=== PATIENT | male | born 1935 | race Caucasian/White ===

== ENCOUNTER 2018-12-31 22:56 | Emergency (ER) | payer BC ==
[~2018-12-31] VITALS: Ht 170.2 cm; Wt 56.7 kg
--- NOTE | 2018-12-31 22:56 | NUR ---
Patient BIBA ACLS, transferred to bed 10. RN evaluating patient at bedside.
[2018-12-31 22:58] VITALS: BP 131/56
--- NOTE | 2018-12-31 23:20 | NUR ---
Dr. Nieto evaluating patient at bedside.
[2018-12-31] MEDS ORDERED: NACL 0.9% 1,000 ML IV ONE (23:25)
[2018-12-31 23:30] VITALS: BP 121/62
--- NOTE | 2018-12-31 23:30 | NUR ---
PT BIBA FROM [facility] FOR SOB, PT AWAKE, GCS 13, WITH TRACH INTACT CONNECTED TO O2 AT 10LPM, RR EVEN UNLABORED, NOTED CRACKLES TO BILATERAL LOWER LUNGS, WITH THICK YELLOW SECRETIONS NOTED, S1, S2 PRESENT, BILATERAL RADIAL/PEDAL PULSES PRESENT WITH <3SEC CAP REFILL, PT WITH GT INTACT, ABDOMEN SOFT WITH BOWEL SOUNDS PRESENT X4, WITH FOX CATH IN PLACE, URINE YELLOW AND CLOUDY WITH 200ML OUTPUT IN THE BAG, PT WITH MULTIPLE SKIN PRESSURE ULCERS TO SACROCOCCYX, R AND L ISCHIUM, DIABETIC ULCERS TO BILATERL HEELS AND BILATERAL LOWER LEGS, PT WITH RIGHT FOREARM SALINE LOCK GAUGE 22, INTACT AND PATENT, ED MD DR. MARTINEZ MADE AWARE, WILL CONTINUE TO MONITOR CLOSELY.
--- NOTE | 2018-12-31 23:45 | NUR ---
CALLED [facility] TO GET MORE INFORMATION ON PT, NO RESPONSE. WILL CONTINUE TO CALL.
--- NOTE | 2018-12-31 23:55 | NUR ---
TRIED TO CONTACT [facility] AGAIN, NO RESPONSE. TRIED CALLING MULTIPLE TIMES, NO ONE IS ANSWERING PHONE, WILL CONTINUE TO CALL.
[2018-12-31 23:59] LABS: HEMATOCRIT 30.1 % (36-52); HEMOGLOBIN 9.7 g/dL (12.0-18.0); MEAN CORPUSCULAR HEMOGLOBIN 31 pg (27-31); MEAN CORPUSCULAR HGB CONC 32 g/dL (33-37); MEAN CORPUSCULAR VOLUME 96.9 fL (80-94); PLATELET COUNT (AUTO) 278 K/uL (140-450); RED CELL DISTRIBUTION WIDTH 16.9 % (11.6-13.7)
[2019-01-01 00:14] LABS: WHITE BLOOD COUNT (AUTO) 21.2 K/uL (4.8-10.8)
[2019-01-01 00:15] LABS: LYMPHOCYTES % (MANUAL) 9 % (20-46); MONOCYTES % (MANUAL) 4 % (5-12)
[2019-01-01 00:16] LABS: ALBUMIN 1.5 g/dL (3.4-5.0); ANION GAP 5.7 (8-16); ASPARTATE AMINOTRANSFERASE 20 U/L (15-37); CARBON DIOXIDE 36.1 mmol/L (21-32); CHLORIDE 99 mmol/L (98-107); CREATININE 1.2 mg/dL (0.7-1.3); POTASSIUM 3.8 mmol/L (3.5-5.1); SODIUM SERUM 137 mmol/L (136-145); TOTAL BILIRUBIN 0.3 mg/dL (0.0-1.0); UREA NITROGEN, BLOOD 46 mg/dL (7-18)
[2019-01-01 00:20] LABS: GLUCOSE 411 mg/dL (74-106)
[2019-01-01] MEDS ORDERED: VANCOMYCIN 1,000 MG in DEXTROSE 5% 250 ML IV ONE (00:20)
[2019-01-01] MEDS ORDERED: NACL 0.9% 1,000 ML IV ONE (00:20)
[2019-01-01] MEDS ORDERED: PIPERACILLIN/TAZOBACTAM 3.375 GM in DEXTROSE 5% 50 ML IV ONE (00:20)
[2019-01-01] MEDS ORDERED: INSULIN REGULAR, HUMAN 100 UNIT/ML VIAL SUBQ ONE (00:25)
--- NOTE | 2019-01-01 00:30 | NUR ---
PT AT BEDSIDE.
--- NOTE | 2019-01-01 00:32 | NUR ---
PT RESPOSIVE TO BY EYE OPENING AND MOUTHING "HI".
[2019-01-01 00:35] LABS: APPEARANCE,URINE CLOUDY (CLEAR); BILIRUBIN,URINE NEGATIVE (NEGATIVE); BLOOD, URINE 2+ (NEGATIVE); COLOR,URINE YELLOW (YELLOW); LEUKOCYTE ESTERASE ,URINE 1+ (NEGATIVE); NITRITE, URINE NEGATIVE (NEGATIVE); PH,URINE 5.5 (5.0-9.0); UGLUCOSE 3+ (NEGATIVE)
--- NOTE | 2019-01-01 01:00 | NUR ---
MD STUDENT SPEAKING WITH AT BEDSIDE NOTICED PT TO BE PALE, PT DID NOT HAVE PULSE ON PALPATION, SOPHIA SESAY CALLED, CPR INITIATED, RT, RN'S, EMT, AND DR MARTINEZ AT BEDSIDE FOR CODE, REFER TO CODE BLUE SHEET FOR FURTHER NOTATION.
[2019-01-01] MEDS ORDERED: PIPERACILLIN/TAZOBACTAM 3.375 GM VIAL IV ONE (01:02)
[2019-01-01] MEDS ORDERED: VANCOMYCIN 1,000 MG VIAL ONE (01:03)
--- NOTE | 2019-01-01 01:03 | NUR ---
CPR initiated. Dr. Nieto at bedside.
--- NOTE | 2019-01-01 01:03 | NUR ---
Called [facility].
[2019-01-01 01:10] LABS: RBC,URINE TOO NUMEROUS TO COUN /HPF (0-5)
[2019-01-01 01:11] LABS: WBC,URINE TOO MANY TO COUNT /HPF (0-5); YEAST,URINE Many /HPF (None Seen)
--- NOTE | 2019-01-01 01:20 | NUR ---
TIME OF AT 0120, CALLED BY DR. MARTINEZ. PRESENT AT BEDSIDE FOR CODE DURATION AND OK WITH CESSATION OF TREATMENT.
--- NOTE | 2019-01-01 01:39 | NUR ---
CALLED [facility], SPOKE WITH MARYLU Bermudez WITH REFERRAL# [id number], PER MARYLU WILL CALL BACK FOR ANY FURTHER QUESTIONS OR INFORMATION NEEDED.
--- NOTE | 2019-01-01 01:55 | NUR ---
CALLED [facility], SPOKE LAITH MARTELL CELL BUILDER TO CALL BACK.
--- NOTE | 2019-01-01 02:10 | NUR ---
SPOKE WITH JEFFREY FROM [facility], WILL NOT BE PROCEDING WITH PT.
--- NOTE | 2019-01-01 02:37 | NUR ---
PT STATES THAT HAS LOT AT [facility] NEXT TO HIS MOTHER.
--- NOTE | 2019-01-01 02:53 | NUR ---
SPOKE WITH MADAI DAWSON FROM [facility], OK TO RELEASE BODY TO FAMILY, AND TO HAVE PCP SIGN CERTIFICATE.
--- NOTE | 2019-01-01 03:00 | NUR ---
SPOKE TO [facility] REGARDING PT INFORMATION AND PRIMARY DR. AND TO LET KNOW PT . SPOKE TO INFANT ROOM TEACHER. ER MADE AWARE OF STATUS.
--- NOTE | 2019-01-01 03:20 | NUR ---
SPOKE TO AND SHE STATED THAT SHE CONTACTED PT PRIMARY DR. CARLOS MANUEL PATTERSON [phone] REGARDING CERTIFICATE AND TO INFORM OF .
--- NOTE | 2019-01-01 03:28 | NUR ---
CALLED [facility] TO SOFTWARE QUALITY ENGINEER PT, ETA IS 90 MIN.
--- NOTE | 2019-01-01 05:05 | NUR ---
MORTUARY IS AT BEDSIDE.
--- NOTE | 2019-01-01 05:15 | NUR ---
MORTUARY LEFT ER WITH PT, IS AWARE.
== END 2019-01-01 01:20 | disposition expired ==
LOC: MED 22:56
DX: J96.90 Respiratory failure, unspecified, unspecified whether with hypoxia or hypercapnia (principal); J18.9 Pneumonia, unspecified organism; I46.9 Cardiac arrest, cause unspecified; D64.9 Anemia, unspecified; E86.0 Dehydration; R73.9 Hyperglycemia, unspecified; N39.0 Urinary tract infection, site not specified; Z99.11 Dependence on respirator [ventilator] status
CPT/HCPCS: 36415; 36600; 71045; 80053; 81001; 82803; 82948; 83605; 83880; 84484; 85025; 87040; 87086; 92950; 93005; 96361; 96374; 99291; J2543; J7030; Q0092; J1815; J3370